=== PATIENT | female | born 1990 | race Caucasian/White ===

== ENCOUNTER 2017-01-05 02:26 | Emergency (ER) | payer BC, OTHER ==
[~2017-01-05] VITALS: Ht 170.2 cm; Wt 62.1 kg
[~2017-01-05 02:26] MED LIST: BCPILLS PO; DOMPERIDONE PO; NXM/40 PO
[2017-01-05 02:31] VITALS: TEMP 36.4; Ht 170.2 cm; Wt 62.1 kg
[2017-01-05 03:09] LABS: BASO % 0.4 %; BASO ABS # 0.03 K/uL (0-0.2); COMPLETE YES; EOS % 1.5 %; HEMATOCRIT 40.9 % (37-47); IG% 0.1 %; LYMPH % 42.9 %; LYMPH ABS # 2.86 K/uL (1.2-3.4); MEAN CELL VOLUME 85.2 fL (80-100); MEAN PLATELET VOLUME 9.7 fL (7.4-10.4); MONO % 9.4 %; NEUT % 45.7 %; PLATELET COUNT 277 K/uL (130-400); WHITE BLOOD COUNT 6.67 K/uL (4.8-10.8)
[2017-01-05 03:16] LABS: URINE APPEARANCE CLEAR (CLEAR); URINE BILIRUBIN NEG (NEG); URINE COLOR YELLOW; URINE EPITHELIAL CELL AUTO 20-30 /lpf (0-5); URINE NITRITE NEG (NEG); URINE PH 6.5 (4.5-7.5); UROBILINOGEN NEG (NEG); ZZUR CULT IF INDIC CLEAN CATCH YES
[2017-01-05 03:18] LABS: MANUAL MICROSCOPIC REQUIRED? NO; REVIEW REQ? NO
[2017-01-05 03:26] LABS: BUN/CREATININE RATIO 15.2 (10-20); CALCIUM 8.9 mg/dl (8.5-10.1); CREATININE 0.84 mg/dl (0.60-1.20); POTASSIUM 3.5 mmol/L (3.5-5.1)
[2017-01-05 03:29] LABS: ALB/GLOB RATIO 1.1 (0.9-2)
[2017-01-05] MEDS ORDERED: ALUMINUM/MAGNESIUM SUSP 30 ML UDC PO STA (03:45)
[2017-01-05] MEDS ORDERED: LIDOCAINE HCL 2% VISC SOLN 20 ML UDC PO STA (03:45)
--- NOTE | 2017-01-05 03:57 | EMERGENCY ROOM VISIT NOTE ---
History Report prepared by Ceci: Adarsh Correia Under the Supervision of: Dr. Yvrose Shane M.D. First contact with patient: 03:25 Chief Complaint: GI ASSESSMENT Stated Complaint: BURNING IN CHEST,HEART BURN Nursing Triage Summary: states hx of gastroparesis c/o pain this am that wont go away. History of Present Illness The patient is a 26 year old female who presents to the Emergency Room with complaints of waxing & waning burning in her chest that started today. The patient tried Tums without relief of the pain. The patient denies vomiting but does complain of nausea. She had some Motrin earlier in the day. The patient denies alcohol consumption. The patient cannot feel any foreign bodies in her throat. The patient has a history of gastroparesis. She denies the possibility of . The patient started taking Sertraline four days ago. She is currently taking half a dose. Source of History: patient Onset: today Position: chest Quality: burning Timing: waxes/wanes Associated Symptoms: + nausea, No vomiting Review of Systems See HPI for pertinent positives & negatives. A total of 10 systems reviewed and were otherwise negative. Past Medical & Surgical Medical Problems: (1) Gastroparesis Family History No pertinent family history Social History Smoking Status: Never Smoker Alcohol Use: none Marital Status: single Occupation Status: employed Current/Historical Medications Scheduled Ciprofloxacin Hcl (Cipro), 500 MG PO BID Esomeprazole Magnesium (Nexium), 40 MG PO DAILY Ethynodiol Diacet & Eth Estrad (Zovia ), 1 TAB PO DAILY Probiotic Product (Align), 4 MG PO DAILY Sertraline (Zoloft), 25 MG PO DAILY Allergies Coded Allergies: Brompheniramine (Verified Allergy, Unknown, SERUM SICKNESS, 01/05/17) Cephalosporins (Verified Allergy, Unknown, SERUM SICKNESS, 01/05/17) Penicillins (Verified Allergy, Unknown, SERUM SICKNESS, 01/05/17) Proton Pump Inhibitors (Verified Allergy, Unknown, ALLERGY TO PREVACID & PROTONIX, 01/05/17) Sulfa Drugs (Verified Allergy, Unknown, SERUM SICKNESS, 01/05/17) Physical Exam Vital Signs Date Time Temp Pulse Resp B/P Pulse Ox O2 Delivery O2 Flow Rate FiO2 01/05/17 05:38 62 18 108/69 99 Room Air 01/05/17 04:41 65 18 125/75 100 Room Air 01/05/17 04:08 56 01/05/17 03:41 54 18 113/74 99 Room Air 01/05/17 02:31 36.4 72 18 144/90 99 Room Air Physical Exam Vital signs reviewed. General: Well-appearing 26 year old female, in no significant distress. HEENT: No scleral icterus, PERRLA, neck supple. Atraumatic. Cardiovascular: Regular rate and rhythm, no extra sounds. Pulmonary: Clear to auscultation bilaterally, normal work of breathing. Abdomen: Soft, mild diffuse abdominal tenderness, nondistended, positive bowel sounds. Musculoskeletal: Atraumatic, no peripheral edema. Neurologic: Patient awake alert and oriented x 3, full strength in all 4 extremities. Cranial nerves 2 through 12 grossly intact. Skin: Warm, dry, no rash Medical Decision & Procedures Laboratory Results 01/05/17 02:50 Red Blood Count 4.80, Mean Corpuscular Volume 85.2, Mean Corpuscular Hemoglobin 29.0, Mean Corpuscular Hemoglobin Concent 34.0, Mean Platelet Volume 9.7, Neutrophils (%) (Auto) 45.7, Lymphocytes (%) (Auto) 42.9, Monocytes (%) (Auto) 9.4, Eosinophils (%) (Auto) 1.5, Basophils (%) (Auto) 0.4, Neutrophils # (Auto) 3.04, Lymphocytes # (Auto) 2.86, Monocytes # (Auto) 0.63, Eosinophils # (Auto) 0.10, Basophils # (Auto) 0.03 01/05/17 02:50 Test 01/05/17 02:45 01/05/17 02:50 01/05/17 03:56 Urine Color YELLOW Urine Appearance CLEAR (CLEAR) Urine pH 6.5 (4.5-7.5) Urine Specific [place] 1.000 (1.000-1.030) Urine Protein NEG (NEG) Urine Glucose (UA) NEG (NEG) Urine Ketones NEG (NEG) Urine Occult Blood NEG (NEG) Urine Nitrite NEG (NEG) Urine Bilirubin NEG (NEG) Urine Urobilinogen NEG (NEG) Urine Leukocyte Esterase LARGE (NEG) Urine WBC (Auto) >30 /hpf (0-5) Urine RBC (Auto) 0-4 /hpf (0-4) Urine Hyaline Casts (Auto) 5-10 /lpf (0-5) Urine Epithelial Cells (Auto) 20-30 /lpf (0-5) Urine Bacteria (Auto) 2+ (NEG) White Blood Count 6.67 K/uL (4.8-10.8) Red Blood Count 4.80 M/uL (4.2-5.4) Hemoglobin 13.9 g/dL (12.0-16.0) Hematocrit 40.9 % (37-47) Mean Corpuscular Volume 85.2 fL (80-100) Mean Corpuscular Hemoglobin 29.0 pg (25-34) Mean Corpuscular Hemoglobin Concent 34.0 g/dl (32-36) Platelet Count 277 K/uL (130-400) Mean Platelet Volume 9.7 fL (7.4-10.4) Neutrophils (%) (Auto) 45.7 % Lymphocytes (%) (Auto) 42.9 % Monocytes (%) (Auto) 9.4 % Eosinophils (%) (Auto) 1.5 % Basophils (%) (Auto) 0.4 % Neutrophils # (Auto) 3.04 K/uL (1.4-6.5) Lymphocytes # (Auto) 2.86 K/uL (1.2-3.4) Monocytes # (Auto) 0.63 K/uL (0.11-0.59) Eosinophils # (Auto) 0.10 K/uL (0-0.5) Basophils # (Auto) 0.03 K/uL (0-0.2) RDW Standard Deviation 39.3 fL (36.4-46.3) RDW Coefficient of Variation 12.6 % (11.5-14.5) Immature Granulocyte % (Auto) 0.1 % Immature Granulocyte # (Auto) 0.01 K/uL (0.00-0.02) Anion Gap 8.0 mmol/L (3-11) Est Creatinine Clear Calc Drug Dose 98.7 ml/min Estimated GFR () 111.2 Estimated GFR (Non- 95.9 BUN/Creatinine Ratio 15.2 (10-20) Calcium Level 8.9 mg/dl (8.5-10.1) Total Bilirubin 0.1 mg/dl (0.2-1) Aspartate Amino Transf (AST/SGOT) 18 U/L (15-37) Alanine Aminotransferase (ALT/SGPT) 23 U/L (12-78) Alkaline Phosphatase 33 U/L (45-117) Total Protein 7.2 gm/dl (6.4-8.2) Albumin 3.8 gm/dl (3.4-5.0) Globulin 3.4 gm/dl (2.5-4.0) Albumin/Globulin Ratio 1.1 (0.9-2) Lipase 213 U/L (73-393) Bedside Troponin I 0.000 ng/ml (0-0.045) Date/Time Source Procedure Growth Status 01/05/17 02:45 Urine , Clean Catch Urine Culture - Final THREE TYPES OF ORGANISMS PRESENT, ALL... Complete Laboratory results per my review. Medications Administered Medications (Trade) Dose Ordered Sig/Sabino Route Start Time Stop Time Status Last Admin Dose Admin Lidocaine HCl (Viscous Lidocaine 2% Soln) 10 ml NOW STAT PO 01/05/17 03:45 01/05/17 03:48 DC 01/05/17 03:57 10 ML Al Hydroxide/Mg Hydroxide (Maalox Susp) 30 ml NOW STAT PO 01/05/17 03:45 01/05/17 03:48 DC 01/05/17 03:57 30 ML Metoclopramide HCl (Reglan Inj) 10 mg NOW STAT IV 01/05/17 04:28 01/05/17 04:29 DC 01/05/17 04:36 10 MG Ciprofloxacin (Cipro Tab) 500 mg NOW STAT PO 01/05/17 05:14 01/05/17 05:15 DC 01/05/17 05:32 500 MG ECG Indication: abdominal pain Rate (beats per minute): 66 Rhythm: sinus with SA Findings: no acute ischemic change, no ectopy ED Course 0340: Past medical records reviewed. The patient was evaluated in room A10. A complete history and physical examination was performed. 0345: Maalox 30 ml PO, Lidocaine HCl 10 ml PO. 0428: Reglan 10 mg IV. 0500: Reassessed the patient. Discussed the findings with her. She verbalized understanding and agreement. The patient is ready for discharge. 0514: Cipro 500 mg PO. Medical Decision Differential diagnosis: Etiologies such as appendicitis, diverticulitis, PUD, biliary pathology, UTI, pancreatitis, obstruction, mesenteric ischemia, aortic pathology, infections, inflammatory bowel disease, renal colic, as well as others were entertained. This patient was evaluated and appeared to be in no significant distress. IV access was obtained and laboratory work was drawn. The patient was placed on the laboratory monitor and found to be in a normal sinus rhythm. She is hydrated with saline solution. She was given a GI cocktail and IV Reglan. The patient did seem to improve. Laboratory work is fairly unrevealing. Urinalysis is contaminated although is suspicious for infection. Patient was given Cipro 500 mg orally as she has a cephalosporin, penicillin and sulfa allergy. She was given a prescription for Cipro 500 twice a day for 3 days. Patient will drink plenty of clear fluids. She'll continue her medications at home as prescribed. She was encouraged to restart her PPI. She states she has an allergy to Protonix specifically although tolerates Prilosec. She will follow-up with her physician for reevaluation and return to the ER for worsening of symptoms or any medical concerns. Impression Primary Impression: Esophageal reflux Additional Impression: UTI (urinary tract infection) Scribe Attestation The scribe's documentation has been prepared under my direction and personally reviewed by me in its entirety. I confirm that the note above accurately reflects all work, treatment, procedures, and medical decision making performed by me. Departure Information Dispostion Home / Self-Care Prescriptions Ciprofloxacin Hcl (CIPRO) 500 Mg Tab 500 MG PO BID, #6 TAB Prov: Yvrose Shane M.D. 01/05/17 Esomeprazole Magnesium (Nexium) 40 Mg Capcr 40 MG PO DAILY for 30 Days, #30 CAP Prov: Yvrose Shane M.D. 01/05/17 Referrals No Doctor, Assigned (PCP) Forms HOME CARE DOCUMENTATION FORM, IMPORTANT VISIT INFORMATION Patient Instructions My [facility] Additional Instructions Diagnosis: Urinary tract infection, gastritis Nexium 40 mg daily for 1 month. Cipro 500 mg twice daily for 3 days. Drink plan clear fluids. Avoid alcohol, coffee, soda. Follow-up with your physician for reevaluation this week. Return to the ER for worsening of symptoms or any medical concerns. Problem Qualifiers Primary Impression: Esophageal reflux Esophagitis presence: esophagitis presence not specified Qualified Codes: K21.9 - Gastro-esophageal reflux disease without esophagitis Additional Impression: UTI (urinary tract infection) Urinary tract infection type: acute cystitis
[2017-01-05] MEDS ORDERED: METOCLOPRAMIDE HCL INJ 5 MG/ML 2 ML VIAL IV STA (04:28)
[2017-01-05] MEDS ORDERED: ETHY1TAB6 PO (04:54)
[2017-01-05] MEDS ORDERED: SERT25TA PO (04:57)
[2017-01-05] MEDS ORDERED: MISC4CAP PO (04:58)
[2017-01-05] MEDS ORDERED: CIPROFLOXACIN 500 MG TAB PO STA (05:14)
[2017-01-05] MEDS ORDERED: CIPR-255 PO (05:37)
[2017-01-05] MEDS ORDERED: NXM/40 PO (05:37)
[2017-01-05 05:38] VITALS: BP 108/69; PULSE 62; O2SAT 99
== END 2017-01-05 05:43 | disposition home or self-care (01) ==
LOC: C.EDB 02:28 → C.EDA 05:43
DX: K21.9 Gastro-esophageal reflux disease without esophagitis (principal); N39.0 Urinary tract infection, site not specified; K31.84 Gastroparesis; Z79.899 Other long term (current) drug therapy; Z88.0 Allergy status to penicillin; Z88.2 Allergy status to sulfonamides; Z88.8 Allergy status to other drugs, medicaments and biological substances